=== PATIENT | male | born 1950 | race Caucasian/White ===

== ENCOUNTER 2018-05-11 08:02 | Inpatient (IN) ==
--- NOTE | 2018-05-10 16:03 | Discharge Summary ---
Date of Encounter: 05/16/18 Time of Encounter: 13:00 - Discharge Diagnosis (1) Osteoarthritis of knees, bilateral Priority: Primary Status: Chronic Qualifiers: Osteoarthritis type: unspecified Qualified Code(s): M17.0 - Bilateral primary osteoarthritis of knee (2) Status post total bilateral knee replacement Priority: Primary Status: Acute (3) Diabetes mellitus Priority: Secondary Status: Chronic Qualifiers: Diabetes mellitus type: type 2 Diabetes mellitus manager intermediate insulin use: without manager intermediate use Diabetes mellitus complication status: with unspecified complications Qualified Code(s): E11.8 - Type 2 diabetes mellitus with unspecified complications (4) HLD (hyperlipidemia) Priority: Secondary Status: Chronic Qualifiers: Hyperlipidemia type: unspecified Qualified Code(s): E78.5 - Hyperlipidemia, unspecified (5) HTN (hypertension) Priority: Secondary Status: Chronic Qualifiers: Hypertension type: unspecified Qualified Code(s): I10 - Essential (primary) hypertension (6) CML (chronic myelocytic leukemia) Priority: Secondary Status: Chronic (7) Acute blood loss anemia Priority: Secondary Status: Acute (8) Hyponatremia Priority: Secondary Status: Acute - Hospital Course Hospital course: Mr. Barraza is a 68 year old male Date of procedure: 05/11/18 Pre-op diagnosis: biLateral knee arthritis Post-op diagnosis: same Procedure: Bilateral robotic-assisted Total knee replacement Patient developed acute blood loss anemia, receiving 1 unit PRBC on 05/13 with interval improvement. Patient also developed hyponatremia. Nephrology consulted and mild improvement occurred. Patient to discharge home with home health with repeat lab work and close follow up for monitoring by nephrology and orthopedics. - Time Spent with Patient Total time spent providing and/or coordinating discharge services: - Discharge Medications Prescriptions: New OxyCODONE Immed Rel [Roxicodone 5 MG] 5 mg PO Q6HR PRN 7 Days #28 tablet PRN Reason: Severe Pain Aspirin Enteric Coated [Aspirin EC] 325 mg PO BID 10 Days #20 tablet. Ascorbic Acid [Vitamin C] 500 mg PO BIDWM 14 Days #28 tablet Cyclobenzaprine [Flexeril] 10 mg PO TID PRN 7 Days #21 tablet PRN Reason: Spasms Ferrous Sulfate 325 mg PO BIDWM 14 Days #28 tablet Lisinopril [Zestril] 20 mg PO DAILY 30 Days #30 tablet Patient Taking Own Medication 2 each PO 0400,1600 each Tamsulosin [Flomax] 0.4 mg PO DAILY 30 Days #30 capsule Multivit/Ca/Min/Fe/FA [Thera M Plus] 1 tab PO DAILY #0 tablet Continue Metformin HCl 1,000 mg PO BID Pioglitazone [Actos] 30 mg PO QAM Nilotinib HCl [Tasigna] 400 mg PO BID Glimepiride [Amaryl] 0.5 mg PO BID Discontinued Lisinopril-HCTZ 20-12.5 [Prinzide 20-12.5] 1 each PO DAILY Home Medications: Aspirin Enteric Coated [Aspirin EC] 325 mg PO BID 10 Days #20 tablet. 05/10/18 [Rx] OxyCODONE Immed Rel [Roxicodone 5 MG] 5 mg PO Q6HR PRN 7 Days #28 tablet 05/10/18 [Rx] Glimepiride [Amaryl] 0.5 mg PO BID 05/11/18 [History] Metformin HCl 1,000 mg PO BID 05/11/18 [History] Nilotinib HCl [Tasigna] 400 mg PO BID 05/11/18 [History] Pioglitazone [Actos] 30 mg PO QAM 05/11/18 [History] Ascorbic Acid [Vitamin C] 500 mg PO BIDWM 14 Days #28 tablet 05/15/18 [Rx] Cyclobenzaprine [Flexeril] 10 mg PO TID PRN 7 Days #21 tablet 05/15/18 [Rx] Ferrous Sulfate 325 mg PO BIDWM 14 Days #28 tablet 05/15/18 [Rx] Lisinopril [Zestril] 20 mg PO DAILY 30 Days #30 tablet 05/15/18 [Rx] Multivit/Ca/Min/Fe/FA [Thera M Plus] 1 tab PO DAILY #0 tablet 05/15/18 [Rx] Patient Taking Own Medication 2 each PO 0400,1600 each 05/15/18 [Rx] Tamsulosin [Flomax] 0.4 mg PO DAILY 30 Days #30 capsule 05/15/18 [Rx] Allergies/Adverse Reactions: Allergy/AdvReac Type Severity Reaction Status Date / Time adhesive tape Allergy Rash Verified 05/11/18 08:34 Date of admission: 05/11/18 Primary care physician: Gian Best Discharging clinician: Lavonne Morrison Anticipated date of discharge: 05/15/18 - VTE Documentation of Mechanical Device: Venous foot pump, device - Patient Status Disposition: Home Health Service Condition: Fair Functional capacity at discharge: uses cane/walker Overall status at discharge: patient is progressing back to baseline - Discharge Instructions Follow Up With: Zach Paige DO [Partnered Physician] - 05/22/18 10:30 am Gian Best MD [Primary Care Provider] - Additional Instructions: Discharge Instructions: Total Knee Replacement Please call [facility] ([phone]), your Primary Care Physician, or report to the Emergency Room if you have any of the following symptoms: Nausea, vomiting, fever greater that 101.5, swelling, chest pain, shortness of breath, increased pain/redness/drainage/odor for your incision site, numbness/tingling, or any other concerning symptoms. ACTIVITY:Weight-bearing as tolerated. You may progress off support (crutches or walker) as tolerated. Incentive Spirometer 10 times an hour. MEDICATIONS: Upon discharge resume your home medications. Take all the medications as prescribed. Take a stool softener if taking narcotic pain medications. Stool softeners are only effective if you drink enough fluids. Drink 6-8 glass of water or fluids a day, unless this is not allowed for another health problem. Despite using stool softeners, if you haven't had a bowel movement in 3 days, please switch to a gentle laxative. Gentle laxatives are sold over the counter. You should have a bowel movement within 24 hours, if not call the office. You will be discharged from the hospital with a prescription for pain medication. You are encouraged to decrease the use of narcotic pain medication as tolerated. Should you require a refill, please call the office. [facility] prescribes narcotic pain medication for only 4-6 weeks after surgery. If you require pain medication beyond this time period, you may be referred to your Primary Care Physician or to the Pain Clinic for further evaluation. Plan ahead for refills on pain medication as many narcotics either need to be picked up at the office or mailed. It is best to call 48-72 hours in advance of needing a prescription refill so you don't run out of medication. To help control the post-operative pain, you may take NSAIDs (Aleve,Advil, Motrin, Ibuprofen, Naprosyn) or Tylenol as prescribed on the bottle in addition to the pain medication. ANTICOAGULATION (blood thinners): Continue your Aspirin, Lovenox or Coumadin as prescribed to help prevent a blood clot in the leg or in the lungs. As long as your incision remains dry and you tolerate the NSAIDs (Aleve, Advil, Motrin, ibuprofen, naprosyn), it is OK to use the NSAIDS while you are taking your anticoagulation medication. Should your incision start to drain, stop the NSAID and contact our office. Common symptoms of blood clot in the legs include: localized pain, swelling, calf tenderness, redness or discoloration of the skin. Blood clot in the lung symptoms include: shortness of breath, rapid pulse, sweating, and chest pain that worsens with deep breathing, coughing up blood, lightheadedness, feelings of anxiety. If you experience any of these symptoms notify your physician immediately, go to the emergency room, or if having trouble breathing, call 911. WOUND CARE: Leave the dressing on for 7 to 10days. You may change the dressing if it becomes saturated greater than 50%. Do not get the dressing wet at anytime. Wash your hands with antibacterial soap, rinse and dry prior to any wound care. If you have luan the visiting nurse or rehab facility can remove the stapes 10-14 days after surgery and place steri-strips across the wound. Leave the steri-strips in place until they fall off on their won. You may let water from the shower run on top of the steri-strips. If you do not have a visiting nurse or rehab facility, you will need to return to the office at 10-14 days for the luan to be removed. If you have itching or redness around the dressing call the office. FOLLOW-UP: Please follow up with your surgeon in the orthopedic clinic in 4 weeks from the day of surgery. If you have luan that need to be removed, you will need to come back to the office in 10-14 days from the day of surgery. - Diet and Activity Activity: as per physical therapy Diet: advance to your usual diet
[2018-05-11] MEDS ORDERED: Ethanol\\Acetic Acid\\Na Ace\\Ben 1,000 ML IRRIG.SOLN IR ONE (08:08)
[2018-05-11] MEDS ORDERED: *HR* OxyCODONE Immed Rel 5 MG TABLET PO PRN (08:16)
[2018-05-11] MEDS ORDERED: Celecoxib 100 MG CAPSULE PO ONE (08:16)
[2018-05-11] MEDS ORDERED: Pregabalin 75 MG CAPSULE PO ONE (08:16)
[2018-05-11] MEDS ORDERED: Ondansetron 4 MG/2 ML VIAL IVP ONE (08:16)
[2018-05-11] MEDS ORDERED: *HR* HYDROmorphone (PF) 1 MG/ML SYRINGE IVP PRN (08:16)
[2018-05-11] MEDS ORDERED: *HR* Meperidine 25 MG/ML SYRINGE IVP PRN (08:16)
[2018-05-11] MEDS ORDERED: Acetaminophen IV 1,000 MG/100 ML INFUS..BTL IVPB ONE (08:16)
[2018-05-11] MEDS ORDERED: CeFAZolin Syr 2,000MG/20 ML 2,000 MG/20 ML SYRINGE IVPB ONE (08:19)
--- NOTE | 2018-05-11 08:24 | Anesthesia Evaluation PreOp ---
Date of Encounter: 05/11/18 Time of Encounter: 08:21 - Past History Planned Operation: Robotic Peter TKR Cardiac History: HTN, Hyperlipidemia Other Medical History: Diabetes Type II, Other (chronic myelogenous leukemia) Anesthesia History: No Prior Anesthetic Complications, Past Anesthesia (L knee scope) Alcohol Use: none Drug use: none Medications and Allergies Aspirin Enteric Coated [Aspirin EC] 325 mg PO BID 10 Days #20 tablet.dr 05/10/18 [Rx] Docusate Sodium [Colace] 100 mg PO BID 5 Days #10 capsule 05/10/18 [Rx] OxyCODONE Immed Rel [Roxicodone 5 MG] 5 mg PO Q6HR PRN 7 Days #28 tablet 05/10/18 [Rx] Allergy/AdvReac Type Severity Reaction Status Date / Time adhesive tape Allergy Rash Verified 04/27/18 11:25 - Meds/Allergy Pre-op Review Medications Reviewed: Yes Allergies Reviewed: Yes Beta Blockers on Current Med List: No Anesthesia Results - Labs Laboratory Tests 04/27/18 04/27/18 04/27/18 12:07 12:07 12:07 WBC 8.1 Hgb 12.3 L Hct 37.0 L Plt Count 414 H PT 11.6 INR 1.0 APTT 30.2 Sodium 136 Potassium 4.6 Chloride 102 Carbon Dioxide 26 BUN 22 Creatinine 1.02 Est Mean Plasma Glucose Hemoglobin A1c 04/27/18 12:07 WBC Hgb Hct Plt Count PT INR APTT Sodium Potassium Chloride Carbon Dioxide BUN Creatinine Est Mean Plasma Glucose 166 Hemoglobin A1c 7.4 H - Imaging EKG: report reviewed ( Interpretive Statements SINUS RHYTHM POSSIBLE RIGHT VENTRICULAR CONDUCTION DELAY Electronically Signed On 04-29-2018 16:00:48 EST by Lee Branch) Anesthesia Exam O2 Sat Height 1.63 m Weight 68.492 kg O2 Sat by Pulse Oximetry 98 Vital Signs Temp Pulse Resp BP Pulse Ox 98.5 F 105 18 164/82 98 05/11/18 08:19 05/11/18 08:19 05/11/18 08:19 05/11/18 08:19 05/11/18 08:19 Weight: 68kg NPO (# of Hours): >8 - HEENT Pupil (Motor): Pupils equal, EOMI Mallampati: II Teeth: Edentulous Denture Type: Upper: Complete, Lower: Complete Oral Opening: Greater than 3 - SMALL ORDER CUTTER LOC: Oriented SMALL ORDER CUTTER Motor: Normal RUE, Normal LUE, Normal RLE, Normal LLE, Normal Face SMALL ORDER CUTTER Sensory: Normal: RUE, LUE, RLE, LLE, Face - Cardiac Rhythm: Regular - Pulmonary Breath Sounds: bilateral Clear Respiratory Effort: Symmetrical Anesthesia Assess/Plan ASA Score: 3 (HTN, DM, chronic myelogenous Leukemia) Level of consciousness: Cooperative, Oriented Anesthetic Plan: General (plan b), Regional Nerve Block, Spinal Regional Nerve Block Plan: Adductor canal (bilateral), IPACK (peter) Monitoring Plan: Standard Monitors Recovery Plan: PACU
[2018-05-11] MEDS ORDERED: Ringers Solution, Lactated 1,000 ML IVC SCH ×2 (08:30)
--- NOTE | 2018-05-11 08:30 | History & Physical Report ---
Date of Encounter: 05/11/18 Time of Encounter: 08:29 24 Hour HP Update - Instructions Instructions: If the History and Physical is less than 30 days old and was completed prior to A.M. admission and or procedure and has NOT been updated on calendar day of procedure please complete this update prior to performing procedure. - Update Patient reports changes in Medical Condition: No Changes in examination, assessment, or condition: No Changes in Medication: No Preop tests/diagnostics Reviewed: Yes Surgery Remains Indicated: Yes Consent for Planned Operative Procedure(s) Verified: Yes - Pre-Operative Checklist Preoperative Checklist Indicated: No Prophylactic Antibiotic Ordered: Yes Is VTE Prophylaxis Indicated?: Yes
[2018-05-11] MEDS ORDERED: Lidocaine -MPF 2% 2 ML VIAL ONE (09:03)
[2018-05-11] MEDS ORDERED: Ondansetron 4 MG/2 ML VIAL ONE (09:03)
[2018-05-11] MEDS ORDERED: *HR* FentaNYL (PF) 100 MCG/2 ML VIAL ONE (09:03)
[2018-05-11] MEDS ORDERED: Propofol 500 MG/50 ML INFUS..BTL ONE (09:03)
[2018-05-11] MEDS ORDERED: Dexamethasone 4 MG/ML VIAL ONE (09:03)
[2018-05-11] MEDS ORDERED: *HR* Midazolam HCl 2 MG/2 ML VIAL ONE (09:03)
[2018-05-11] MEDS ORDERED: ROPIVACAINE/PF/NS SYRINGE INTRAART ONE (09:37)
[2018-05-11] MEDS ORDERED: Lidocaine -MPF 1% 5 ML AMPUL ONE (09:45)
[2018-05-11] MEDS ORDERED: Total Joint Mixture (50 ml) IR ONE ×2 (10:20)
[2018-05-11] MEDS ORDERED: *HR* PHENYLEPHRINE 1,000 MCG/10 ML SYRINGE IVP ONE (10:59)
--- NOTE | 2018-05-11 11:38 | Orthopedic Operative Note ---
Date of procedure: 05/11/18 Pre-op diagnosis: biLateral knee arthritis Post-op diagnosis: same Procedure: Procedure: Bilateral robotic-assisted Total knee replacement Estimated blood loss: 300 cc Hardware: Metal and polyethylene replacement. [place] Femur: 4 Tibia: 4 TS insert: 9 Patella: 39 Exam Under anesthesia: Grade 3 effusion no erythema right knee no swelling of left knee. 9 degree flexion contracture bilateral 6 degree varus deformity left 12 degree varus deformity right as calculated by the robot full flexion and no instability Procedural Notes: Grade 4 arthritic changes all 3 compartments. Operative procedure: The patient was brought to the operating room and placed on the operating room table. After general anesthesia was administered the operative knee was examined. Findings were noted in the exam under anesthesia. The operative extremity was prepped and draped in sterile surgical fashion. The patient received IV antibiotics prior to skin incision. Next visit dictation for both knees, any differences will be highlighted. Surgery began with the left knee followed by the right knee. A standard midline incision was made centered over the patella. The incision was made through the skin and subcutaneous tissue. A medial parapatellar tendon approach was performed. Care was taken to preserve tissue along the medial aspect of the patella. And to protect the patella tendon. The right knee had clear joint fluid. The deep MCL was released off the medial tibia. The infra patella fat pad was excised. The patella was everted and cut was made at the level of the insertion of the quadriceps and patella tendon. The patella was sized the guide was seated and the lug holes are drilled. Knee was brought into flexion. Patient noted to have grade 4 arthritic changes all 3 compartments. Steinmann pins were placed in the tibia and the femur for the tibial and femoral arrays respectively. Checkpoints were also placed in the tibia and the femur for calculation purposes. The knee including the femur and the tibial registered. Osteophytes, ACL and PCL were excised at this point. Extension and flexion were assessed with a valgus stress components were adjusted on the computer to balance the knee. Femoral cuts were made first with robotic assistance, these included the anterior cut posterior cuts chamfer cuts. Tibial cut was then performed with robotic assistance as well. Bone fragments were removed, as well as the medial and lateral meniscus. The size 4 femoral guide was seated box cut was made lug holes are drilled. The size 4 tibial tray was seated and prepared with the fin cutter. Trial reduction with the 9 TS Alice revealed extension of 0 degree bilateral and 1 degree varus left knee 5 degrees varus right knee full flexion. No varus valgus instability. Trial reduction revealed excellent patella tracking. All trial components were removed all bony surfaces were irrigated. The Tibia was seated followed by the femur, The selected Alice size was seated and secured patella. Patient had similar findings for motion and stability. The knee was closed by the PA. The knee was then irrigated out with 2 L of pulse irrigation. The extensor mechanism was closed with #2 FiberWire suture an d #2 PDS suture. The subcutaneous tissue was then irrigated and closed deep with #1 PDS suture superficially with 0 PDS suture and skin was closed with zip tie The patient was then placed in a sterile dressing and a postoperative brace extubated and transferred to recovery room in stable condition. Anesthesia: spinal Surgeon: Ander Murray Was there an marketing support assistant present: Yes Circular Knitter: Lavonne Morrison Estimated blood loss (cc): 300 Condition: stable Disposition: PACU
--- NOTE | 2018-05-11 12:54 | Anesthesia Procedures ---
Date of Encounter: 05/11/18 Time of Encounter: 08:45 Procedures: Anesthesia - Nerve Block Procedure Date: 05/11/18 Time: 08:45 Allergies/Adv Reactions: adhesive tape Allergy (Verified 05/11/18 08:34) Rash Pre-op Diagnosis: osteoarthitis bilateral knees Surgical Procedure: bilateral total knees Checklist: Correct Patient Identifier, Correct procedure, History checked Blood Thinner: No Monitor Applied: EKG, BP, Pulse Oximetry Supplemental Oxygen via Nasal Cannula (L/min): 2 Sedation: Versed (mg): 2 Sedation: Fentanyl (mcg): 100 Indication: Post Op Analgesia Pre-op Neuro Deficits: No Block Type: Other (bilateral adductor canal) Catheter placed: No Sterile Technique: Yes Ultrasound used: Yes Anatomy identified: Yes Visual spread of Local: Yes Neuro Stimulation: No Blood on Needle Aspiration: No Smooth Injection of Local: Yes Pain with Injection of Local: No Prep: Chlorhexadine Needle: 22 x 50 mm Stimuplex Local: Ropivacaine (0.25%, 15cc each side) Volume (cc): 30 Number of Attempts: 1 Complications: None/effective block
--- NOTE | 2018-05-11 12:59 | Anesthesia Procedures ---
Date of Encounter: 05/11/18 Time of Encounter: 08:45 Procedures: Anesthesia - Epidural/Spinal Patient ID/Chart reviewed: Yes Patient examined: Yes Consent Obtained: Yes Supplemental Oxygen: None/Room Air Site Prep: Aseptic Technique Patient position: upright Local Anesthetic: Lidocaine 1% Amount of Local Anesthetic used: 3 Spinal Needle Gauge: 25 Procedure: L3-4x 1 attempt, clear CSF, positive swirl, 2.5cc 0.5% bupivicaine injected incrementally
[2018-05-11 13:09] LABS: Hematocrit 35.7 % (37.5-50.1); Hemoglobin 11.7 g/dL (12.9-16.9)
--- NOTE | 2018-05-11 13:20 | Anesthesia Evaluation Post Op ---
Date of Encounter: 05/11/18 Time of Encounter: 13:20 - Vital Signs Vital Signs: Vital Signs - Last 8 Hours Temp Pulse Resp BP Pulse Ox 05/11/18 13:13 97.3 F L 72 16 114/64 98 05/11/18 13:03 74 16 113/66 98 05/11/18 12:53 73 16 113/61 99 05/11/18 12:43 97.5 F L 80 18 117/64 99 05/11/18 12:33 71 16 118/63 98 05/11/18 12:23 74 16 117/65 98 05/11/18 12:13 98.0 F 79 18 119/58 97 05/11/18 10:07 98 114/68 97 05/11/18 09:52 111 152/93 95 05/11/18 08:19 98.5 F 105 18 164/82 98 Intake and Output 05/10/18 05/11/18 05/11/18 23:59 07:59 15:59 Output Total 300 / 300 Balance -300 / -300 Output: Urine 0 / 0 Estimated Blood Loss 300 / 300 Other: Weight 68.492 kg Blood Glucose* 153 Patient Weight 05/11/18 23:59 Weight 68.492 kg - Lungs Lungs: Clear Ascult./Percussion - Airway Airway: Non-obstructed - Cardiovascular Regular Rate, Baseline Rhythm - Mental Status Mental Status: Alert & Oriented, Answers Appropriately - Pain Pain Scale: 0 Pain Scale used: Numeric (1 - 10) - Nausea Vomiting Nausea Vomiting: Not Present - Hydration Hydration: Tolerates oral liquids, Ice chips Notes: 05/11/18 13:19 patient able to wiggle toes - Discharge PostOp Status: Transfer Patient to floor
--- NOTE | 2018-05-11 13:33 | Physician Discharge Referral ---
<Lavonne Pineda - Last Filed: 05/11/18 13:31> Home Health/Hosp Referral Info Transfer to: Home Health Attending Provider: Trevor - Diagnosis (1) Status post total bilateral knee replacement Priority: Primary Status: Acute (2) Osteoarthritis of knees, bilateral Priority: Primary Status: Chronic (3) CML (chronic myelocytic leukemia) Priority: Secondary Status: Chronic (4) Diabetes mellitus Priority: Secondary Status: Chronic (5) HLD (hyperlipidemia) Priority: Secondary Status: Chronic (6) HTN (hypertension) Priority: Secondary Status: Chronic - Respiratory Orders None Smoking Cessation: Smoking cessation has been advised. For more information, call the [place] Tobacco Quit Line at 9-289-WANU-NOW. - Diet/Nutrition Diet/Nutrition Orders: Regular - Activity Activity Orders: Ambulate, Chair, Walker - Services Needed Following services are medically necessary services: Nursing, Home Health Aide, Physical Therapy, Occupational Therapy Home Care Orders: Opsite dressing, leave intact until first post-operative visit. If dressing becomes >50% saturated, contact office, remove dressing and place appropriate dressing in its place. Do not allow for dressing to get wet. Zipline/Marie in place, plan to remove at post-operative day #14-16. Total Joint Precautions x 6 weeks Apply cold therapy wrap 3-6x/day for 20 minutes at a time. Encourage ambulation throughout the day Use Incentive spirometer 10x/hour. Elevate affected extremity above heart as tolerated. Brace: Wear knee immobilizer at night x 2 weeks. - Transfer Medications Prescriptions: Ascorbic Acid [Vitamin C] 500 mg PO BIDWM 14 Days #28 tablet Cyclobenzaprine [Flexeril] 10 mg PO TID PRN 7 Days #21 tablet PRN Reason: Spasms Ferrous Sulfate 325 mg PO BIDWM 14 Days #28 tablet Lisinopril [Zestril] 20 mg PO DAILY 30 Days #30 tablet Tamsulosin [Flomax] 0.4 mg PO DAILY 30 Days #30 capsule Home Medications: Aspirin Enteric Coated [Aspirin EC] 325 mg PO BID 10 Days #20 tablet. 05/10/18 [Rx] OxyCODONE Immed Rel [Roxicodone 5 MG] 5 mg PO Q6HR PRN 7 Days #28 tablet 05/10/18 [Rx] Glimepiride [Amaryl] 0.5 mg PO BID 05/11/18 [History] Metformin HCl 1,000 mg PO BID 05/11/18 [History] Nilotinib HCl [Tasigna] 400 mg PO BID 05/11/18 [History] Pioglitazone [Actos] 30 mg PO QAM 05/11/18 [History] Ascorbic Acid [Vitamin C] 500 mg PO BIDWM 14 Days #28 tablet 05/15/18 [Rx] Cyclobenzaprine [Flexeril] 10 mg PO TID PRN 7 Days #21 tablet 05/15/18 [Rx] Ferrous Sulfate 325 mg PO BIDWM 14 Days #28 tablet 05/15/18 [Rx] Lisinopril [Zestril] 20 mg PO DAILY 30 Days #30 tablet 05/15/18 [Rx] Multivit/Ca/Min/Fe/FA [Thera M Plus] 1 tab PO DAILY #0 tablet 05/15/18 [Rx] Patient Taking Own Medication 2 each PO 0400,1600 each 05/15/18 [Rx] Tamsulosin [Flomax] 0.4 mg PO DAILY 30 Days #30 capsule 05/15/18 [Rx] Allergies/Adverse Reactions: Allergy/AdvReac Type Severity Reaction Status Date / Time adhesive tape Allergy Rash Verified 05/11/18 08:34 Certification: Further, I certify that my clinical findings support that this patient is homebound (i.e. absences from home require considerable and taxing effort and are for medical reasons or hinduism services or infrequently or short duration when for other reasons) because: Homebound Reason: Post-surgery restriction and or conditions limit ability to leave home Attestation: My signature below is to certify that this patient is under my care and that I, or nurse practitioner, or a physician assistant at surgery working with me, has a [id number] encounter with this patient. <Lavonne Morrison E - Last Filed: 05/16/18 09:17> Home Health/Hosp Referral Info Transfer to: Home Health Attending Provider: Dr. Ander Murray - Diagnosis (1) Osteoarthritis of knees, bilateral Priority: Primary Status: Chronic (2) Status post total bilateral knee replacement Priority: Primary Status: Acute (3) Diabetes mellitus Priority: Secondary Status: Chronic (4) HLD (hyperlipidemia) Priority: Secondary Status: Chronic (5) HTN (hypertension) Priority: Secondary Status: Chronic (6) CML (chronic myelocytic leukemia) Priority: Secondary Status: Chronic (7) Acute blood loss anemia Priority: Secondary Status: Acute (8) Hyponatremia Priority: Secondary Status: Acute - Respiratory Orders Smoking Cessation: Smoking cessation has been advised. For more information, call the [place] Tobacco Quit Line at 4-526-JRVN-NOW. - Diet/Nutrition Diet/Nutrition Orders: Regular (HIGH SALT DIET RECOMMENDED; 2L FLUID RESTRICTION UNTIL NEPHROLOGY FOLLOW UP) - Activity Activity Orders: Ambulate, Chair, Walker - Services Needed Following services are medically necessary services: Nursing, Home Health Aide, Physical Therapy, Occupational Therapy Home Care Orders: RECHECK H/H AND BMP ON 05/20/18 Certification: Further, I certify that my clinical findings support that this patient is homebound (i.e. absences from home require considerable and taxing effort and are for medical reasons or hinduism services or infrequently or short duration when for other reasons) because: Homebound Reason: Post-surgery restriction and or conditions limit ability to leave home, Leaving home requires considerable and taxing effort due to condition Attestation: My signature below is to certify that this patient is under my care and that I, or nurse practitioner, or a physician assistant at surgery working with me, has a [id number] encounter with this patient.
[2018-05-11] MEDS ORDERED: Dextrose 4 GM Chewable Tablets PO PRN ×2 (13:35)
[2018-05-11] MEDS ORDERED: *HR* Dextrose 50 % in Water (Syg) 50 ML SYRINGE IVP PRN (13:35)
[2018-05-11] MEDS ORDERED: Sennosides 8.6 MG TABLET PO PRN (13:35)
[2018-05-11] MEDS ORDERED: Temazepam 15 MG CAPSULE PO PRN (13:35)
[2018-05-11] MEDS ORDERED: Dextrose Gel 15 GM/37.5 ML TUBE PO PRN ×2 (13:35)
[2018-05-11] MEDS ORDERED: MOM Conc 10 ML UD.LIQ PO PRN (13:35)
[2018-05-11] MEDS ORDERED: Ondansetron 4 MG/2 ML VIAL IVP PRN (13:35)
[2018-05-11] MEDS ORDERED: D5% in Water 1,000 ML IVC PRN (13:35)
[2018-05-11] MEDS ORDERED: *HR* Promethazine 25 MG/ML VIAL IVP PRN (13:35)
[2018-05-11] MEDS: Multivit/Ca/Min/Fe/FA 1 TAB TABLET PO SCH (14:13)
[2018-05-11] MEDS: Insulin LISPRO 300 UNITS/3 ML VIAL SQ SCH ×3 (14:14→20:52)
[2018-05-11] MEDS ORDERED: NILOTINIB PO SCH (16:00)
[2018-05-11] MEDS: traMADol 50 MG TABLET PO PRN (16:09)
[2018-05-11] MEDS: *HR* Metformin 500 MG TABLET PO SCH (17:18)
[2018-05-11] MEDS: *HR* Glimepiride 2 MG TABLET PO SCH (17:19)
[2018-05-11] MEDS: Ascorbic Acid 500 MG TABLET PO SCH (17:19)
[2018-05-11] MEDS: *HR* Enoxaparin 30 MG/0.3 ML SYRINGE SQ SCH (17:20)
[2018-05-11] MEDS: Ringers Solution, Lactated 1,000 ML IVC SCH ×2 (18:34→22:50)
[2018-05-11] MEDS: *HR* OxyCODONE Immed Rel 5 MG TABLET PO PRN (20:51)
[2018-05-11] MEDS ORDERED: NILOTINIB HCL 400 MG PO SCH (21:00)
[2018-05-12] MEDS: NILOTINIB PO SCH ×2 (05:19→16:13)
[2018-05-12] MEDS: *HR* Enoxaparin 30 MG/0.3 ML SYRINGE SQ SCH ×2 (05:19→17:28)
[2018-05-12] MEDS: *HR* OxyCODONE Immed Rel 5 MG TABLET PO PRN ×4 (05:20→18:57)
--- NOTE | 2018-05-12 06:23 | Orthopedics Progress Note ---
Date of Encounter: 05/12/18 Time of Encounter: 06:22 Subjective Interval history: Patient was seen this morning doing well without complaints. Afebrile vital signs stable. Operative extremity: Neurovascularly intact Dressing clean dry and intact Calves nontender Assessment and plan: Continue with postoperative care Plan for discharge today postop hematocrit 35 Objective Vital signs: Vital Signs Temp Pulse Resp BP Pulse Ox 05/12/18 03:20 98.8 F 84 16 128/71 94 05/11/18 23:42 96 05/11/18 23:02 97.8 F 89 14 127/76 96 05/11/18 19:15 97.7 F 81 15 135/82 97 05/11/18 16:01 98.1 F 83 153/83 97 05/11/18 13:36 97.5 F L 74 16 113/63 95 05/11/18 13:13 97.3 F L 72 16 114/64 98 05/11/18 13:03 74 16 113/66 98 05/11/18 12:53 73 16 113/61 99 05/11/18 12:43 97.5 F L 80 18 117/64 99 05/11/18 12:33 71 16 118/63 98 05/11/18 12:23 74 16 117/65 98 05/11/18 12:13 98.0 F 79 18 119/58 97 05/11/18 10:07 98 114/68 97 05/11/18 09:52 111 152/93 95 05/11/18 08:19 98.5 F 105 18 164/82 98 Intake and Output 05/11/18 05/11/18 05/12/18 15:59 23:59 07:59 Intake Total 340 / 340 100 / 100 Output Total 300 / 300 500 / 500 Balance -300 / -300 -160 / -160 100 / 100 Intake: IV Fluids 100 / 100 100 / 100 Ancef 2,000 MG In 0.9 % Sodium 100 / 100 100 / 100 Chloride 100 ML @ 200 mls/hr IVPB Q8H DEON Rx#:[id number] Oral 240 / 240 Output: Urine 0 / 0 500 / 500 Estimated Blood Loss 300 / 300 Other: Meal Dinner Percent of Meal Consumed 100% # Voids 1 Weight 68.492 kg Blood Glucose* 153 284 - Labs CBC & BMP: 05/11/18 12:44 Labs: Abnormal lab results Hgb 11.7 g/dL (12.9-16.9) L 05/11/18 12:44 Hct 35.7 % (37.5-50.1) L 05/11/18 12:44 POC Glucose 119 mg/dL (70-99) H 05/11/18 08:16 Consult Discharge Plan - Plan Referrals: Gian Best MD [Primary Care Provider] - Prescriptions: Aspirin Enteric Coated [Aspirin EC] 325 mg PO BID 10 Days #20 tablet. Docusate Sodium [Colace] 100 mg PO BID 5 Days #10 capsule OxyCODONE Immed Rel [Roxicodone 5 MG] 5 mg PO Q6HR PRN 7 Days #28 tablet PRN Reason: Severe Pain
[2018-05-12 06:36] LABS: Hematocrit 29.1 % (37.5-50.1)
[2018-05-12 06:37] LABS: Hemoglobin 9.5 g/dL (12.9-16.9)
[2018-05-12 06:56] LABS: BUN/Creatinine Ratio 25 (6-26); Blood Urea Nitrogen 25 mg/dL (8-23); Calcium 8.9 mg/dL (8.6-10.3); Carbon Dioxide 23 mEq/L (23-29); Chloride 98 mEq/L (98-107); Glucose 157 mg/dL (70-105); Osmolality,Calculated 280 (280-300); Potassium 4.3 mEq/L (3.5-5.1); Sodium 131 mEq/L (136-145); eGFR For Non-African Americans > 60 (> 60)
[2018-05-12] MEDS: Insulin LISPRO 300 UNITS/3 ML VIAL SQ SCH ×4 (07:29→22:49)
[2018-05-12] MEDS: Lisinopril-HCTZ 20-12.5mg TABLET PO SCH (08:04)
[2018-05-12] MEDS: *HR* Glimepiride 2 MG TABLET PO SCH ×2 (08:10→17:28)
[2018-05-12] MEDS: *HR* Metformin 500 MG TABLET PO SCH ×2 (08:10→17:28)
[2018-05-12] MEDS: Ascorbic Acid 500 MG TABLET PO SCH ×2 (08:10→17:28)
[2018-05-12] MEDS: *HR* Pioglitazone 30 MG TABLET PO SCH (08:11)
[2018-05-12] MEDS: Multivit/Ca/Min/Fe/FA 1 TAB TABLET PO SCH (08:11)
[2018-05-12] MEDS: traMADol 50 MG TABLET PO PRN ×2 (11:28→17:28)
--- NOTE | 2018-05-12 16:22 | Event Note ---
Date of Encounter: 05/12/18 Time of Encounter: 12:20 PCR - POD#1 s/p B/L TKR 05/11/18 Patient seen at bedside, without complaints. A&O x 3 Afebrile, vital signs stable. Dressings have older bloody drainage noted, not fresh (R~50% and L~75% saturation) borders drawn around 4am per nurse and bleeding not past at this point will monitor for any worsening after PM therapy session. Dressings to be changed before discharge. No calf tenderness to palpation. good dorsiflexion of foot, sensation intact distally. Labs reviewed. H/H -9.5/29.1 stable, asymptomatic Na 131 - will monitor, asymptomatic Pain control: inadequate - worse in right leg, describes muscle spasms and tightness to knee and thigh, compartments soft with no increased pain upon palpation. No calf tenderness to palpation, will add muscle relaxer and lidoderm patch Participating in PT. All questions and concerns addressed. Educated on use of incentive spirometer. Encouraged ambulation and proper hydration. Patient educated on post-operative restrictions and post-operative care. Assessment and plan: Continue with postoperative care Discharge plan: Home with home health, possible discharge today pending pain control. Nursing to reassess after pm PT session and after addition of muscle relaxers.
[2018-05-12] MEDS ORDERED: Acetaminophen IV 1,000 MG/100 ML INFUS..BTL IVPB PRN (20:37)
[2018-05-12] MEDS ORDERED: Ketorolac 30 MG/ML VIAL IVP PRN (20:38)
[2018-05-13 03:38] LABS: Hematocrit 24.2 % (37.5-50.1); Hemoglobin 8.1 g/dL (12.9-16.9)
[2018-05-13 03:57] LABS: BUN/Creatinine Ratio 24 (6-26); Blood Urea Nitrogen 32 mg/dL (8-23); Calcium 8.6 mg/dL (8.6-10.3); Carbon Dioxide 21 mEq/L (23-29); Chloride 93 mEq/L (98-107); Glucose 210 mg/dL (70-105); Osmolality,Calculated 269 (280-300); Potassium 4.9 mEq/L (3.5-5.1); Sodium 123 mEq/L (136-145); eGFR For Non-African Americans 54 (> 60)
[2018-05-13] MEDS: NILOTINIB PO SCH ×2 (04:51→17:29)
[2018-05-13] MEDS: *HR* Enoxaparin 30 MG/0.3 ML SYRINGE SQ SCH ×2 (04:51→18:06)
[2018-05-13] MEDS: *HR* OxyCODONE/APAP 5/325 TABLET PO PRN ×4 (04:52→22:42)
[2018-05-13] MEDS ORDERED: Furosemide 20 MG/2 ML VIAL IVP PRN (07:55)
--- NOTE | 2018-05-13 07:55 | Orthopedics Progress Note ---
Date of Encounter: 05/13/18 Time of Encounter: 07:53 - Assessment and Plan (1) Acute blood loss anemia Current Visit: Yes Status: Acute Subjective Interval history: Patient was seen this morning doing well without complaints. Afebrile vital signs stable. Operative extremity: Neurovascularly intact Dressing clean dry and intact Calves nontender Assessment and plan: Continue with postoperative care hb 8.1 transfuse 1 unit sodium 123 Objective Vital signs: Vital Signs Temp Pulse Resp BP Pulse Ox 05/13/18 04:46 98.6 F 112 16 111/61 94 05/12/18 22:30 98.6 F 128 17 136/79 93 05/12/18 19:25 98.9 F 111 14 151/75 94 05/12/18 15:36 98.1 F 116 16 127/62 95 05/12/18 10:42 98.9 F 108 14 137/78 94 05/12/18 08:30 95 Intake and Output 05/12/18 05/12/18 05/13/18 15:59 23:59 07:59 Intake Total 480 / 480 700 / 700 Balance 480 / 480 700 / 700 Intake: Oral 480 / 480 700 / 700 Other: Meal Lunch Dinner Percent of Meal Consumed 100% 75% # Voids 1 1 1 Blood Glucose* 215 203 - Labs CBC & BMP: 05/13/18 03:29 05/13/18 03:29 Labs: Abnormal lab results Hgb 8.1 g/dL (12.9-16.9) L 05/13/18 03:29 Hct 24.2 % (37.5-50.1) L 05/13/18 03:29 Sodium 123 mEq/L (136-145) L 05/13/18 03:29 Chloride 93 mEq/L (98-107) L 05/13/18 03:29 Carbon Dioxide 21 mEq/L (23-29) L 05/13/18 03:29 BUN 32 mg/dL (8-23) H 05/13/18 03:29 Creatinine 1.31 mg/dL (0.70-1.30) H 05/13/18 03:29 Est GFR (Non-Af Amer) 54 (> 60) L 05/13/18 03:29 Glucose 210 mg/dL (70-105) H 05/13/18 03:29 POC Glucose 138 mg/dL (70-99) H 05/12/18 07:21 Calculated Osmolality 269 (280-300) L 05/13/18 03:29 Consult Discharge Plan - Plan Referrals: Gian Best MD [Primary Care Provider] - Prescriptions: Aspirin Enteric Coated [Aspirin EC] 325 mg PO BID 10 Days #20 tablet. Docusate Sodium [Colace] 100 mg PO BID 5 Days #10 capsule OxyCODONE Immed Rel [Roxicodone 5 MG] 5 mg PO Q6HR PRN 7 Days #28 tablet PRN Reason: Severe Pain
[2018-05-13] MEDS: *HR* Metformin 500 MG TABLET PO SCH ×2 (09:35→17:23)
[2018-05-13] MEDS: *HR* Glimepiride 2 MG TABLET PO SCH ×2 (09:35→17:23)
[2018-05-13] MEDS: Ascorbic Acid 500 MG TABLET PO SCH ×2 (09:36→17:23)
[2018-05-13] MEDS: Lisinopril-HCTZ 20-12.5mg TABLET PO SCH (09:36)
[2018-05-13] MEDS: Multivit/Ca/Min/Fe/FA 1 TAB TABLET PO SCH (09:36)
[2018-05-13] MEDS: *HR* Pioglitazone 30 MG TABLET PO SCH (09:36)
[2018-05-13] MEDS: Insulin LISPRO 300 UNITS/3 ML VIAL SQ SCH ×4 (09:38→19:58)
[2018-05-13] MEDS: 0.9 % Sodium Chloride 250 ML IVC SCH ×2 (11:55→19:57)
--- NOTE | 2018-05-13 12:03 | Event Note ---
Date of Encounter: 05/13/18 Time of Encounter: 09:20 PCR - POD#2 s/p B/L TKR 05/11/18 Patient seen at bedside, without complaints. A&O x 3. Spouse at bedside. Afebrile, vital signs stable. Dressings intact with scant old blood to right proximal incision. No calf tenderness to palpation. good dorsiflexion of feet sensation intact distally bilaterally. Labs reviewed. decreased hgb - getting 1 unit PRBCs ordered by Dr. Murray Sodium continued to decline, renal function concerning - will monitor with repeat lab after blood - anticipate resolution. Pain control: improved - with muscle relaxer and lidoderm patch Participating in PT. All questions and concerns addressed. Educated on use of incentive spirometer. Encouraged ambulation and proper hydration. Patient educated on post-operative restrictions and post-operative care. Assessment and plan: Continue with postoperative care Discharge plan: Home with home health, if labs resolve as wnl will be okay with discharge - if not will hold and repeat in the morning to monitor. Consider specialty consult if not improving.
[2018-05-13 16:44] LABS: Hematocrit 27.2 % (37.5-50.1); Hemoglobin 9.2 g/dL (12.9-16.9)
[2018-05-13 17:07] LABS: BUN/Creatinine Ratio 25 (6-26); Blood Urea Nitrogen 34 mg/dL (8-23); Calcium 8.7 mg/dL (8.6-10.3); Carbon Dioxide 21 mEq/L (23-29); Chloride 92 mEq/L (98-107); Glucose 131 mg/dL (70-105); Osmolality,Calculated 263 (280-300); Potassium 4.6 mEq/L (3.5-5.1); Sodium 122 mEq/L (136-145); eGFR For Non-African Americans 51 (> 60)
[2018-05-13] MEDS ORDERED: 0.9 % Sodium Chloride 1,000 ML IVC ONE (17:30)
[2018-05-14 03:51] LABS: Hematocrit 25.4 % (37.5-50.1); Hemoglobin 8.9 g/dL (12.9-16.9)
[2018-05-14 04:11] LABS: BUN/Creatinine Ratio 24 (6-26); Blood Urea Nitrogen 34 mg/dL (8-23); Calcium 8.1 mg/dL (8.6-10.3); Carbon Dioxide 21 mEq/L (23-29); Chloride 94 mEq/L (98-107); Glucose 137 mg/dL (70-105); Osmolality,Calculated 264 (280-300); Potassium 4.4 mEq/L (3.5-5.1); Sodium 122 mEq/L (136-145); eGFR For Non-African Americans 50 (> 60)
[2018-05-14] MEDS: NILOTINIB PO SCH (04:21)
[2018-05-14] MEDS: *HR* Enoxaparin 30 MG/0.3 ML SYRINGE SQ SCH ×2 (05:51→18:43)
[2018-05-14] MEDS: *HR* Glimepiride 2 MG TABLET PO SCH ×2 (08:27→16:30)
[2018-05-14] MEDS: Multivit/Ca/Min/Fe/FA 1 TAB TABLET PO SCH (08:28)
[2018-05-14] MEDS: *HR* Metformin 500 MG TABLET PO SCH ×2 (08:28→16:32)
[2018-05-14] MEDS: *HR* Pioglitazone 30 MG TABLET PO SCH (08:28)
[2018-05-14] MEDS: Ascorbic Acid 500 MG TABLET PO SCH ×2 (08:28→16:32)
[2018-05-14] MEDS: Insulin LISPRO 300 UNITS/3 ML VIAL SQ SCH ×4 (08:37→20:51)
--- NOTE | 2018-05-14 08:40 | Orthopedics Progress Note ---
Date of Encounter: 05/14/18 Time of Encounter: 08:40 - Assessment and Plan (1) Osteoarthritis of knees, bilateral Status: Chronic Qualifiers: Osteoarthritis type: unspecified Qualified Code(s): M17.0 - Bilateral primary osteoarthritis of knee (2) Status post total bilateral knee replacement Status: Acute (3) Diabetes mellitus Status: Chronic Qualifiers: Diabetes mellitus type: type 2 Diabetes mellitus detention insulin use: without intermediate school teacher use Diabetes mellitus complication status: with unspecified complications Qualified Code(s): E11.8 - Type 2 diabetes mellitus with unspecified complications (4) HLD (hyperlipidemia) Status: Chronic Qualifiers: Hyperlipidemia type: unspecified Qualified Code(s): E78.5 - Hyperlipidemia, unspecified (5) HTN (hypertension) Status: Chronic Qualifiers: Hypertension type: unspecified Qualified Code(s): I10 - Essential (primary) hypertension (6) CML (chronic myelocytic leukemia) Status: Chronic (7) Acute blood loss anemia Status: Acute (8) Hyponatremia Status: Acute Subjective Principal diagnosis: s/p b/l tkr Interval history: POD#3 s/p B/L TKR 05/11/18 Patient seen at bedside, without complaints. A&O x 3. Spouse at bedside. Afebrile, vital signs reviewed. Dressings intact with scant old blood to right proximal incision. No calf tenderness to palpation. good dorsiflexion of feet sensation intact distally bilaterally. Labs reviewed. Hgb low again - received 1 unit PRBCs 05/13 Sodium continued to decline, renal function concerning - will monitor with repeat lab after blood - anticipate resolution. Pain control: improved - with muscle relaxer and lidoderm patch Participating in PT. All questions and concerns addressed. Educated on use of incentive spirometer. Encouraged ambulation and proper hydration. Patient educated on post-operative restrictions and post-operative care. Assessment and plan: Continue with postoperative care Discharge plan: Home with home health - medical hold on discharge right now - consult to nephrology for assistance in management of sodium and renal function Patient course discussed with Dr. Murray Objective Vital signs: Vital Signs Temp Pulse Resp BP Pulse Ox 05/14/18 06:14 98 16 134/83 05/13/18 22:46 98.7 F 106 16 139/79 92 05/13/18 19:14 98.4 F 109 17 126/68 91 05/13/18 14:40 98.6 F 113 16 110/62 93 05/13/18 12:06 98.1 F 106 18 128/62 96 05/13/18 11:52 98.7 F 110 16 121/65 94 Intake and Output 05/13/18 05/14/18 05/14/18 23:59 07:59 15:59 Intake Total 1400 / 1400 Balance 1400 / 1400 Intake: IV Fluids 1000 / 1000 0.9 % Sodium Chloride 1,000 ML 1000 / 1000 @ 999 mls/hr IVC .Q1H1M ONE Rx# :[id number] Oral 400 / 400 Other: # Voids 1 1 Weight 68.5 kg Blood Glucose* 159 145 Patient Weight 05/14/18 23:59 Weight 68.5 kg - Labs CBC & BMP: 05/14/18 03:14 05/14/18 13:15 Labs: Abnormal lab results Hgb 8.9 g/dL (12.9-16.9) L 05/14/18 03:14 Hct 25.4 % (37.5-50.1) L 05/14/18 03:14 Sodium 122 mEq/L (136-145) L 05/14/18 03:14 Chloride 94 mEq/L (98-107) L 05/14/18 03:14 Carbon Dioxide 21 mEq/L (23-29) L 05/14/18 03:14 BUN 34 mg/dL (8-23) H 05/14/18 03:14 Creatinine 1.41 mg/dL (0.70-1.30) H 05/14/18 03:14 Est GFR (Non-Af Amer) 50 (> 60) L 05/14/18 03:14 Glucose 137 mg/dL (70-105) H 05/14/18 03:14 POC Glucose 121 mg/dL (70-99) H 05/13/18 17:04 Calculated Osmolality 264 (280-300) L 05/14/18 03:14 Calcium 8.1 mg/dL (8.6-10.3) L 05/14/18 03:14 Consult Discharge Plan - Plan Referrals: Gian Best MD [Primary Care Provider] - Prescriptions: RX: OxyCODONE Immed Rel [Roxicodone 5 MG] 5 mg PO Q6HR PRN 7 Days #28 tablet PRN Reason: Severe Pain RX: Aspirin Enteric Coated [Aspirin EC] 325 mg PO BID 10 Days #20 tablet. RX: Docusate Sodium [Colace] 100 mg PO BID 5 Days #10 capsule
[2018-05-14] MEDS: *HR* OxyCODONE/APAP 5/325 TABLET PO PRN ×2 (12:50→20:50)
--- NOTE | 2018-05-14 12:51 | Nephrology Consult Note ---
Date of Encounter: 05/14/18 Time of Encounter: 09:45 Assessment and Plan (1) Hyponatremia Status: Acute Multifactorial etiology suspected: HCTZ, postop SIADH, polydipsia, and possibly transient urinary retention (the latter two have already improved). Recommend closely following labs for a slow (6-8mEq per 24hr), safe PNa correction, with fluid restriction, and urine studies plus bladder U/S to r/o urinary retention. (2) Anemia Status: Acute Qualifiers: Anemia type: unspecified type Qualified Code(s): D64.9 - Anemia, unspecified (3) HTN (hypertension) Status: Chronic Qualifiers: Hypertension type: unspecified Qualified Code(s): I10 - Essential (primary) hypertension History of Present Illness - Reason for Consult Consult date: 05/14/18 Requesting physician: Lavonne Morrison - Chief Complaint Hyponatremia Past Med Surg Social Fam HX - Past Medical History Medical history: diabetes, hypertension, other Additional medical history: chronic myelogenous leukemia Psychiatric history: no psych history - Past Surgical History Surgical History: orthopedic, other Additional surgical history: left knee surgery - arthroscopic. b/l knee STEM cell - Social History Smoking Status: Never smoker Smokeless Tobacco Status: No Alcohol use: none Drug use: none - Family History Father Hx Family Neurologic Disorders: Yes Medications and Allergies Aspirin Enteric Coated [Aspirin EC] 325 mg PO BID 10 Days #20 tablet. 05/10/18 [Rx] Docusate Sodium [Colace] 100 mg PO BID 5 Days #10 capsule 05/10/18 [Rx] OxyCODONE Immed Rel [Roxicodone 5 MG] 5 mg PO Q6HR PRN 7 Days #28 tablet 05/10/18 [Rx] Glimepiride [Amaryl] 0.5 mg PO BID 05/11/18 [History] Lisinopril-HCTZ 20-12.5 [Prinzide 20-12.5] 1 each PO DAILY 05/11/18 [History] Metformin HCl 1,000 mg PO BID 05/11/18 [History] Nilotinib HCl [Tasigna] 400 mg PO BID 05/11/18 [History] Pioglitazone [Actos] 30 mg PO QAM 05/11/18 [History] Allergy/AdvReac Type Severity Reaction Status Date / Time adhesive tape Allergy Rash Verified 05/11/18 08:34 Review of Systems All Systems: reviewed and no additional remarkable complaints except as stated Exam - Vital Signs Vital signs: Initial Vital Signs Temp Pulse Resp BP Pulse Ox 98.5 F 105 18 164/82 98 05/11/18 08:19 05/11/18 08:19 05/11/18 08:19 05/11/18 08:19 05/11/18 08:19 Vital Signs - Last 8 Hours Temp Pulse Resp BP Pulse Ox 05/14/18 09:34 98.5 F 89 18 129/86 96 05/14/18 06:14 98 16 134/83 Intake and Output 05/13/18 05/14/18 05/14/18 23:59 07:59 15:59 Intake Total 1400 / 1400 400 / 400 Balance 1400 / 1400 400 / 400 Intake: IV Fluids 1000 / 1000 0.9 % Sodium Chloride 1,000 ML 1000 / 1000 @ 999 mls/hr IVC .Q1H1M ONE Rx# :[id number] Oral 400 / 400 400 / 400 Other: # Voids 1 1 Weight 68.5 kg Blood Glucose* 159 145 228 Patient Weight 05/14/18 23:59 Weight 68.5 kg Results - Lab Results 05/14/18 03:14 05/14/18 03:14 Most recent lab results Calcium 8.1 mg/dL (8.6-10.3) L 05/14/18 03:14 Consult Discharge Plan - Plan Referrals: Gian Best MD [Primary Care Provider] - Prescriptions: OxyCODONE Immed Rel [Roxicodone 5 MG] 5 mg PO Q6HR PRN 7 Days #28 tablet PRN Reason: Severe Pain Aspirin Enteric Coated [Aspirin EC] 325 mg PO BID 10 Days #20 tablet. Docusate Sodium [Colace] 100 mg PO BID 5 Days #10 capsule
[2018-05-14 14:04] LABS: Uric Acid 6.1 mg/dL (2.3-7.6)
[2018-05-14 20:15] LABS: Potassium,Urine 26.4 mEq/L; Sodium, Urine 20.6 mEq/L
[2018-05-15 03:30] LABS: BUN/Creatinine Ratio 23 (6-26); Blood Urea Nitrogen 26 mg/dL (8-23); Calcium 8.4 mg/dL (8.6-10.3); Carbon Dioxide 21 mEq/L (23-29); Chloride 96 mEq/L (98-107); Glucose 97 mg/dL (70-105); Osmolality,Calculated 265 (280-300); Potassium 4.3 mEq/L (3.5-5.1); Sodium 125 mEq/L (136-145); eGFR For Non-African Americans > 60 (> 60)
[2018-05-15] MEDS: *HR* Enoxaparin 30 MG/0.3 ML SYRINGE SQ SCH (04:27)
[2018-05-15] MEDS: NILOTINIB PO SCH (04:28)
[2018-05-15 06:40] LABS: Hemoglobin 8.1 g/dL (12.9-16.9)
--- NOTE | 2018-05-15 08:15 | Orthopedics Progress Note ---
Date of Encounter: 05/15/18 Time of Encounter: 07:58 - Assessment and Plan (1) Osteoarthritis of knees, bilateral Status: Chronic Qualifiers: Osteoarthritis type: unspecified Qualified Code(s): M17.0 - Bilateral primary osteoarthritis of knee (2) Status post total bilateral knee replacement Status: Acute (3) Diabetes mellitus Status: Chronic Qualifiers: Diabetes mellitus type: type 2 Diabetes mellitus longterm insulin use: without manager terminal use Diabetes mellitus complication status: with unspecified complications Qualified Code(s): E11.8 - Type 2 diabetes mellitus with unspecified complications (4) HLD (hyperlipidemia) Status: Chronic Qualifiers: Hyperlipidemia type: unspecified Qualified Code(s): E78.5 - Hyperlipidemia, unspecified (5) HTN (hypertension) Status: Chronic Qualifiers: Hypertension type: unspecified Qualified Code(s): I10 - Essential (primary) hypertension (6) CML (chronic myelocytic leukemia) Status: Chronic (7) Acute blood loss anemia Status: Acute (8) Hyponatremia Status: Acute Subjective Principal diagnosis: s/p b/l tkr Interval history: POD#4 s/p B/L TKR 05/11/18 Patient seen at bedside, without complaints. A&O x 3. Spouse at bedside. Afebrile, vital signs reviewed. Dressings intact with scant old blood to right proximal incision. No calf tenderness to palpation. good dorsiflexion of feet sensation intact distally bilaterally. Labs reviewed. Hgb and BMP results discussed at length with Dr. Paige - will add Tamsulosin, encourage high salt diet, continue fluid restriction to 2L, d/c hctz component of htn med, and have outpatient follow up with Dr. Paige. Sodium at steady level compared to last check - will recheck again later this morning to monitor increase to no more than 6 in a 24 hour period Pain control: improved - with muscle relaxer and lidoderm patch Participating in PT. All questions and concerns addressed. Educated on use of incentive spirometer. Encouraged ambulation and proper hydration. Patient educated on post-operative restrictions and post-operative care. Assessment and plan: Discharge today with home health if no worsening of repeat labs and nephro signs off Patient course discussed with Dr. Murray Objective Vital signs: Vital Signs Temp Pulse Resp BP Pulse Ox 05/15/18 06:33 99.3 F 107 18 158/75 94 05/14/18 22:57 98.3 F 99 16 123/71 91 05/14/18 18:55 99.1 F 108 17 158/76 94 05/14/18 14:39 98.4 F 75 16 130/66 96 05/14/18 09:34 98.5 F 89 18 129/86 96 Intake and Output 05/14/18 05/14/18 05/15/18 15:59 23:59 07:59 Intake Total 640 / 640 640 / 640 Output Total 1400 / 1400 400 / 400 1475 / 1475 Balance -760 / -760 240 / 240 -1475 / -1475 Intake: Oral 640 / 640 640 / 640 Output: Urine 1400 / 1400 400 / 400 1475 / 1475 Other: Meal Lunch Dinner Percent of Meal Consumed 50% 25% # Voids 1 1 Weight 68.6 kg Blood Glucose* 228 181 153 Patient Weight 05/15/18 23:59 Weight 68.6 kg - Labs CBC & BMP: 05/15/18 10:51 05/15/18 10:51 Labs: Abnormal lab results Hgb 8.1 g/dL (12.9-16.9) L 05/15/18 06:19 Hct 24.0 % (37.5-50.1) L 05/15/18 06:19 Sodium 125 mEq/L (136-145) L 05/15/18 02:32 Chloride 96 mEq/L (98-107) L 05/15/18 02:32 Carbon Dioxide 21 mEq/L (23-29) L 05/15/18 02:32 BUN 26 mg/dL (8-23) H 05/15/18 02:32 POC Glucose 181 mg/dL (70-99) H 05/14/18 20:08 Serum Osmolality 268 mOsm/kg (280-300) L 05/14/18 13:15 Calculated Osmolality 265 (280-300) L 05/15/18 02:32 Calcium 8.4 mg/dL (8.6-10.3) L 05/15/18 02:32 Urine Osmolality 296 mOsm/kg (300-1090) L 05/14/18 20:00 Consult Discharge Plan - Plan Additional Instructions: Discharge Instructions: Total Knee Replacement Please call [facility] ([phone]), your Primary Care Physician, or report to the Emergency Room if you have any of the following symptoms: Nausea, vomiting, fever greater that 101.5, swelling, chest pain, shortness of breath, increased pain/redness/drainage/odor for your incision site, numbness/tingling, or any other concerning symptoms. ACTIVITY:Weight-bearing as tolerated. You may progress off support (crutches or walker) as tolerated. Incentive Spirometer 10 times an hour. MEDICATIONS: Upon discharge resume your home medications. Take all the medications as prescribed. Take a stool softener if taking narcotic pain medi cations. Stool softeners are only effective if you drink enough fluids. Drink 6- 8 glass of water or fluids a day, unless this is not allowed for another health problem. Despite using stool softeners, if you haven't had a bowel movement in 3 days, please switch to a gentle laxative. Gentle laxatives are sold over the counter. You should have a bowel movement within 24 hours, if not call the office. You will be discharged from the hospital with a prescription for pain medication. You are encouraged to decrease the use of narcotic pain medication as tolerated. Should you require a refill, please call the office. [facility] prescribes narcotic pain medication for only 4-6 weeks after surgery. If you require pain medication beyond this time period, you may be referred to your Primary Care Physician or to the Pain Clinic for further evaluation. Plan ahead for refills on pain medication as many narcotics either need to be picked up at the office or mailed. It is best to call 48-72 hours in advance of needing a prescription refill so you don't run out of medication. To help control the post-operative pain, you may take NSAIDs (Aleve,Advil, Motrin, Ibuprofen, Naprosyn) or Tylenol as prescribed on the bottle in addition to the pain medication. ANTICOAGULATION (blood thinners): Continue your Aspirin, Lovenox or Coumadin as prescribed to help prevent a blood clot in the leg or in the lungs. As long as your incision remains dry and you tolerate the NSAIDs (Aleve, Advil, Motrin, ibuprofen, naprosyn), it is OK to use the NSAIDS while you are taking your anticoagulation medication. Should your incision start to drain, stop the NSAID and contact our office. Common symptoms of blood clot in the legs include: localized pain, swelling, calf tenderness, redness or discoloration of the skin. Blood clot in the lung symptoms include: shortness of breath, rapid pulse, sweating, and chest pain that worsens with deep breathing, coughing up blood, lightheadedness, feelings of anxiety. If you experience any of these symptoms notify your physician immediately, go to the emergency room, or if having trouble breathing, call 911. WOUND CARE: Leave the dressing on for 7 to 10days. You may change the dressing if it becomes saturated greater than 50%. Do not get the dressing wet at anytime. Wash your hands with antibacterial soap, rinse and dry prior to any wound care. If you have luan the visiting nurse or rehab facility can remove the stapes 10-14 days after surgery and place steri-strips across the wound. Leave the steri-strips in place until they fall off on their won. You may let water from the shower run on top of the steri-strips. If you do not have a visiting nurse or rehab facility, you will need to return to the office at 10-14 days for the luan to be removed. If you have itching or redness around the dressing call the office. FOLLOW-UP: Please follow up with your surgeon in the orthopedic clinic in 4 weeks from the day of surgery. If you have luan that need to be removed, you will need to come back to the office in 10-14 days from the day of surgery. Referrals: Zach Paige DO [Partnered Physician] - 05/22/18 10:30 am Gian Best MD [Primary Care Provider] - Prescriptions: Ascorbic Acid [Vitamin C] 500 mg PO BIDWM 14 Days #28 tablet Cyclobenzaprine [Flexeril] 10 mg PO TID PRN 7 Days #21 tablet PRN Reason: Spasms Ferrous Sulfate 325 mg PO BIDWM 14 Days #28 tablet Lisinopril [Zestril] 20 mg PO DAILY 30 Days #30 tablet Tamsulosin [Flomax] 0.4 mg PO DAILY 30 Days #30 capsule
--- NOTE | 2018-05-15 08:16 | Orthopedics Progress Note ---
Date of Encounter: 05/15/18 - Assessment and Plan (1) Osteoarthritis of knees, bilateral Current Visit: No Status: Chronic Qualifiers: Qualified Code(s): M17.0 - Bilateral primary osteoarthritis of knee (2) Status post total bilateral knee replacement Current Visit: No Status: Acute (3) Diabetes mellitus Current Visit: No Status: Chronic Qualifiers: Qualified Code(s): E11.8 - Type 2 diabetes mellitus with unspecified complications (4) HLD (hyperlipidemia) Current Visit: No Status: Chronic Qualifiers: Qualified Code(s): E78.5 - Hyperlipidemia, unspecified (5) HTN (hypertension) Current Visit: No Status: Chronic Qualifiers: Qualified Code(s): I10 - Essential (primary) hypertension (6) CML (chronic myelocytic leukemia) Current Visit: No Status: Chronic (7) Acute blood loss anemia Current Visit: No Status: Acute (8) Hyponatremia Current Visit: No Status: Acute Subjective Principal diagnosis: s/p b/l tkr Interval history: POD#3 s/p B/L TKR 05/11/18 Patient seen at bedside, without complaints. A&O x 3. Spouse at bedside. Afebrile, vital signs reviewed. Dressings intact with scant old blood to right proximal incision. No calf tenderness to palpation. good dorsiflexion of feet sensation intact distally bilaterally. Labs reviewed. Hgb low again - received 1 unit PRBCs 05/13 Sodium continued to decline, renal function concerning - will monitor with repeat lab after blood - anticipate resolution. Pain control: improved - with muscle relaxer and lidoderm patch Participating in PT. All questions and concerns addressed. Educated on use of incentive spirometer. Encouraged ambulation and proper hydration. Patient educated on post-operative restrictions and post-operative care. Assessment and plan: Continue with postoperative care Discharge plan: Home with home health - medical hold on discharge right now - consult to nephrology for assistance in management of sodium and renal function Patient course discussed with Dr. Murray Objective Vital signs: Vital Signs Temp Pulse Resp BP Pulse Ox 05/15/18 06:33 99.3 F 107 18 158/75 94 05/14/18 22:57 98.3 F 99 16 123/71 91 05/14/18 18:55 99.1 F 108 17 158/76 94 05/14/18 14:39 98.4 F 75 16 130/66 96 05/14/18 09:34 98.5 F 89 18 129/86 96 Intake and Output 05/14/18 05/15/18 05/15/18 23:59 07:59 15:59 Intake Total 640 / 640 Output Total 400 / 400 1475 / 1475 Balance 240 / 240 -1475 / -1475 Intake: Oral 640 / 640 Output: Urine 400 / 400 1475 / 1475 Other: Meal Dinner Percent of Meal Consumed 25% # Voids 1 1 Weight 68.6 kg Blood Glucose* 181 153 Patient Weight 05/15/18 23:59 Weight 68.6 kg - Labs CBC & BMP: 05/15/18 06:19 05/15/18 02:32 Labs: Abnormal lab results Hgb 8.1 g/dL (12.9-16.9) L 05/15/18 06:19 Hct 24.0 % (37.5-50.1) L 05/15/18 06:19 Sodium 125 mEq/L (136-145) L 05/15/18 02:32 Chloride 96 mEq/L (98-107) L 05/15/18 02:32 Carbon Dioxide 21 mEq/L (23-29) L 05/15/18 02:32 BUN 26 mg/dL (8-23) H 05/15/18 02:32 POC Glucose 181 mg/dL (70-99) H 05/14/18 20:08 Serum Osmolality 268 mOsm/kg (280-300) L 05/14/18 13:15 Calculated Osmolality 265 (280-300) L 05/15/18 02:32 Calcium 8.4 mg/dL (8.6-10.3) L 05/15/18 02:32 Urine Osmolality 296 mOsm/kg (300-1090) L 05/14/18 20:00 Consult Discharge Plan - Plan Referrals: Gian Best MD [Primary Care Provider] -
[2018-05-15 08:42] LABS: % Iron Saturation 4 % (20-55); Iron 10 mcg/dL (65-175); Transferrin 191 mg/dL (203-362)
[2018-05-15] MEDS: Insulin LISPRO 300 UNITS/3 ML VIAL SQ SCH ×2 (08:53→12:22)
[2018-05-15] MEDS: Multivit/Ca/Min/Fe/FA 1 TAB TABLET PO SCH (08:54)
[2018-05-15] MEDS: *HR* Glimepiride 2 MG TABLET PO SCH (08:54)
[2018-05-15] MEDS: *HR* Metformin 500 MG TABLET PO SCH (08:54)
[2018-05-15] MEDS: Ascorbic Acid 500 MG TABLET PO SCH (08:54)
[2018-05-15] MEDS: *HR* Pioglitazone 30 MG TABLET PO SCH (08:55)
[2018-05-15] MEDS ORDERED: Lisinopril 20 MG TABLET PO SCH (09:00)
[2018-05-15] MEDS: *HR* OxyCODONE/APAP 5/325 TABLET PO PRN ×2 (09:12→15:57)
[2018-05-15 10:21] VITALS: BP 153/74
[2018-05-15 11:06] LABS: Hematocrit 24.7 % (37.5-50.1); Hemoglobin 8.4 g/dL (12.9-16.9)
[2018-05-15 11:22] LABS: BUN/Creatinine Ratio 23 (6-26); Blood Urea Nitrogen 27 mg/dL (8-23); Calcium 8.8 mg/dL (8.6-10.3); Carbon Dioxide 22 mEq/L (23-29); Chloride 95 mEq/L (98-107); Glucose 161 mg/dL (70-105); Osmolality,Calculated 269 (280-300); Potassium 4.7 mEq/L (3.5-5.1); Sodium 125 mEq/L (136-145); eGFR For Non-African Americans > 60 (> 60)
[2018-05-15] MEDS ORDERED: NILOTINIB PO SCH (16:00)
== END 2018-05-15 16:15 | disposition home health service (06) | DRG 462 ==
LOC: SAMDAY 08:02 → 3NENU 13:29
PROVIDERS: ADMIT Orthopaedic Surgery; ATTEND Orthopaedic Surgery